=== PATIENT | male | born 1980 | race Caucasian/White ===

== ENCOUNTER → 2019-04-25 | Outpatient (CLI) | payer OTHER | END | disposition home or self-care (01) | LOC: M.RAD 10:26 → M.MRI 13:30 | DX: M25.552 Pain in left hip (principal); G89.29 Other chronic pain; S73.192A Other sprain of left hip, initial encounter; M24.152 Other articular cartilage disorders, left hip; M85.48 Solitary bone cyst, other site; X58.XXXA Exposure to other specified factors, initial encounter; Y93.89 Activity, other specified; Y92.89 Other specified places as the place of occurrence of the external cause; Y99.8 Other external cause status ==